=== PATIENT | male | born 1945 | race African-American/Black ===

== ENCOUNTER 2018-12-03 17:21 | Inpatient (IN) | payer BC ==
[2018-12-03 17:27] VITALS: BMI 28.0
--- NOTE | 2018-12-03 17:38 | PDOC ---
History of Present Illness - General History Source: Patient Exam Limitations: No Limitations - History of Present Illness Initial Comments: 12/03/18 17:49 73y M hx of htn, chf sent by ortho for further evaulation of R knee anu. The patient notes the pain began gradually approx 4 days, there was no trauma, falls or injuries. There was also swelling, the pain has graduqally worsened over the past 4 days to the point where he can;t walk. pt went to see dr. boo in his office who tapped his knee and sent the pt to the ED for further evaluation and to see dr. Patel. Pt denies any fevers, no history of gout or diet changes. pt notse he went to a breakfast buffet the day before his knee started bothering him and ate some pork products. <Collins Bryan - Last Filed: 12/03/18 18:14> <Aria Luong - Last Filed: 12/03/18 21:41> - General Chief Complaint: Pain, Acute Stated Complaint: RIGHT KNEE SWELLING/PAIN Time Seen by Provider: 12/03/18 17:49 Past History - Past Medical History Cardiac Disorders: Yes (SLOW HEART RATE) COPD: No HTN: Yes - Suicide/Smoking/Psychosocial Hx Smoking History: Never smoked Hx Alcohol Use: No Drug/Substance Use Hx: No <Collins Bryan - Last Filed: 12/03/18 18:14> <Aria Luong - Last Filed: 12/03/18 21:41> - Past Medical History Allergies/Adverse Reactions: Allergies Allergy/AdvReac Type Severity Reaction Status Date / Time No Known Allergies Allergy Verified 12/03/18 17:22 Review of Systems - Review of Systems Able to Perform ROS?: Yes Comments:: 12/03/18 18:23 Constitutional - no reported Fever, Chills, HEENT: no reported vision changes, sore throat Respiratory: no reported cough, sob, hemoptysis Cardiac: no reported chest pain, palpitations, light headedness, leg swelling Abd/GI: no reported abd pain, nausea, vomiting, blood per rectum, melena, diarrhea : no reported dysuria, frequency, discharge Musculskelatal - +R knee pain and swelling no reported back pain skin - no reported bruising, erythema, rash neurological: no reported headache, numbness, focal weakness, tingling, ataxia, hematologic: no reported easy bruising, easy bleeding <IrvinCollins - Last Filed: 12/03/18 18:14> *Physical Exam - Vital Signs Last Vital Signs Temp Pulse Resp BP Pulse Ox 97.9 F 79 16 136/97 100 12/03/18 17:22 12/03/18 17:22 12/03/18 17:22 12/03/18 17:22 12/03/18 17:22 - Physical Exam Comments: 12/03/18 18:23 GENERAL: The patient is awake, alert, and fully oriented, Nontoxic - in no acute distress. HEAD: Normocephalic, atraumatic.e LUNGS: Breath sounds equal, clear to auscultation bilaterally. No wheezes, no rhonchi, no rales. HEART: Regular rate and rhythm, normal S1 and S2 without murmur, rub or gallop. ABDOMEN: Soft, nontender. No guarding, no rebound. EXTREMITIES: Warmth to the right knee, moderate effusion, range of motion of the right knee limited due to pain. no erythema. no streaking. NEUROLOGICAL: No facial assymetry, Normal speech, PSYCH: Normal mood, normal affect. SKIN: Warm, Dry, normal turgor, <IrvinCollins - Last Filed: 12/03/18 18:14> - Vital Signs Last Vital Signs Temp Pulse Resp BP Pulse Ox 97.9 F 79 16 136/97 100 12/03/18 17:22 12/03/18 17:22 12/03/18 17:22 12/03/18 17:22 12/03/18 17:22 <Aria Luong - Last Filed: 12/03/18 21:41> ED Treatment Course - LABORATORY CBC & Chemistry Diagram: 12/03/18 17:47 12/03/18 17:47 - ADDITIONAL ORDERS Additional order review: Laboratory Results 12/03/18 12/03/18 12/03/18 17:47 17:47 17:47 Sodium 138 Potassium 4.7 Chloride 101 Carbon Dioxide 25 Anion Gap 12 BUN 36 H Creatinine 2.1 H Creat Clearance w eGFR 31.11 Random Glucose 101 Calcium 8.7 Total Bilirubin 0.9 AST 17 ALT 9 L Alkaline Phosphatase 102 Total Protein 7.4 Albumin 3.5 Fluid Source Right knee Fluid WBC 55,335 Fluid RBC 21,248 Fluid Neutrophils 98 Fluid Other Cells 2 syn.lining cells Pleural Diff Comment Synovial Crystals Many msu 12/03/18 17:47 RBC 5.23 MCV 76.7 L MCHC 31.6 L RDW 13.1 MPV 11.0 Neutrophils % No Result Required. Lymphocytes % No Result Required. - Medications Given in the ED: ED Medications Discontinued Medications Generic Name Dose Route Start Last Admin Trade Name Huyen PRN Reason Stop Dose Admin Ibuprofen 400 mg 12/03/18 18:07 12/03/18 18:12 Motrin - PO 12/03/18 18:08 400 mg ONCE ONE Administration <Aria Luong - Last Filed: 12/03/18 21:41> Medical Decision Making - Medical Decision Making 12/03/18 18:24 73-year-old gentleman presenting with atraumatic right knee pain, status post right arthrocentesis as an outpatient by orthopedics - Patient arrives with the specimen in hand Suspect gout versus septic arthritis We'll send synovial fluid samples Blood work Motrin for analgesia Will reassess <Collins Bryan - Last Filed: 12/03/18 18:14> *DC/Admit/Observation/Transfer <Collins Bryan - Last Filed: 12/03/18 18:14> - Discharge Dispostion Decision to Admit order: Yes <Aria Luong - Last Filed: 12/03/18 21:41> Diagnosis at time of Disposition: Septic arthritis of knee, right - Discharge Dispostion Condition at time of disposition: Guarded
[2018-12-03] MEDS ORDERED: IBUPROFEN 400 MG TABLET (FP) PO ONE ×2 (18:07→18:09)
[2018-12-03 18:23] LABS: HEMATOCRIT 40.2 % (35.4-49); HEMOGLOBIN 12.7 GM/dl (11.7-16.9); MCH 24.3 pg (25.7-33.7); MCHC 31.6 g/dl (32.0-35.9); MEAN CELL VOLUME 76.7 fl (80-96); PLATELET COUNT 303 K/MM3 (134-434); RBC 5.23 M/mm3 (4.00-5.60); RDW 13.1 % (11.9-15.9); WHITE BLOOD COUNT 16.8 K/mm3 (4.0-10.8)
[2018-12-03 18:31] LABS: ALBUMIN 3.5 g/dl (3.4-5.0); ALK PHOS 102 U/L (45-117); ANION GAP 12 MMOL/L (8-16); BILIRUBIN,TOTAL 0.9 mg/dl (0.2-1); BLOOD UREA NITROGEN 36 mg/dl (7-18); CALCIUM 8.7 mg/dl (8.5-10); CHLORIDE 101 mmol/L (98-107); CO2 25 mmol/L (21-32); CREATININE 2.1 mg/dl (0.55-1.3); GLUCOSE,RANDOM 101 mg/dl (74-106); POTASSIUM 4.7 mmol/L (3.5-5.1); SGOT/AST 17 U/L (15-37); SGPT/ALT 9 U/L (13-61); SODIUM 138 mmol/L (136-145); TOT PROT 7.4 g/dl (6.4-8.2)
--- NOTE | 2018-12-03 21:32 | PDOC ---
*Physical Exam - Vital Signs Last Vital Signs Temp Pulse Resp BP Pulse Ox 97.9 F 79 16 136/97 100 12/03/18 17:22 12/03/18 17:22 12/03/18 17:22 12/03/18 17:22 12/03/18 17:22 - Physical Exam Comments: 12/03/18 22:[address] Bryan. This is a continuation of care note. ED Treatment Course - LABORATORY CBC & Chemistry Diagram: 12/03/18 17:47 12/03/18 17:47 - ADDITIONAL ORDERS Additional order review: Laboratory Results 12/03/18 12/03/18 12/03/18 17:47 17:47 17:47 Sodium 138 Potassium 4.7 Chloride 101 Carbon Dioxide 25 Anion Gap 12 BUN 36 H Creatinine 2.1 H Creat Clearance w eGFR 31.11 Random Glucose 101 Calcium 8.7 Total Bilirubin 0.9 AST 17 ALT 9 L Alkaline Phosphatase 102 Total Protein 7.4 Albumin 3.5 Fluid Source Right knee Fluid WBC 55,335 Fluid RBC 21,248 Pleural Diff Comment Synovial Crystals Many msu 12/03/18 17:47 RBC 5.23 MCV 76.7 L MCHC 31.6 L RDW 13.1 MPV 11.0 Neutrophils % No Result Required. Lymphocytes % No Result Required. - Medications Given in the ED: ED Medications Discontinued Medications Generic Name Dose Route Start Last Admin Trade Name Freq PRN Reason Stop Dose Admin Ibuprofen 400 mg 12/03/18 18:07 12/03/18 18:12 Motrin - PO 12/03/18 18:08 400 mg ONCE ONE Administration Medical Decision Making - Medical Decision Making 12/03/18 21:32 Pt has a septic arthritis and he will be admitted 12/03/18 21:37 Vanco and Ancef IV will be given initially. *DC/Admit/Observation/Transfer Diagnosis at time of Disposition: Septic arthritis of knee, right - Discharge Dispostion Condition at time of disposition: Guarded - Referrals - Patient Instructions - Post Discharge Activity
[2018-12-03] MEDS ORDERED: VANCOMYCIN 1,000 MG in DEXTROSE 5%-WATER - 250 ML IVPB ONE (21:34)
[2018-12-03] MEDS ORDERED: CEFAZOLIN 1 GM/D5W 1 GM/50 ML BAG IVPB ONE (21:35)
[2018-12-03] MEDS ORDERED: VANCOMYCIN 1,000 MG VIAL (RESTRICTED TO ID ONLY) ONE (21:38)
[2018-12-03] MEDS ORDERED: ceFAZolin SODIUM 1 GM VIAL ONE (21:38)
[2018-12-03] MEDS ORDERED: ACETAMINOPHEN 325 MG TABLET (FP) PO ONE (21:56)
[2018-12-03] MEDS ORDERED: ACETAMINOPHEN 325 MG TABLET (FP) ONE (22:16)
--- NOTE | 2018-12-03 23:24 | HP ---
CHIEF COMPLAINT: right knee swelling with right knee tap today showing >55,000 WBC's and sent to the ER by Orthopedics PCP: None Orthopedist: Dr. Diallo Residential Support Worker: Dr. Chung in [facility] Mechatronics Technologist: Dr. Ding HISTORY OF PRESENT ILLNESS: This is a 73 year old male with history of cardiomyopathy, systolic congestive heart failure, EF 30% and hypertension who developed right knee swelling and pain over the past 4 days. He had a right knee tap today by Orthopedics-Dr. Diallo. He was found to have >55,000 WBC's. He was sent to the ER for an admission for further evaluation and IV antibiotics. In the ER he was found to have WBC of 16.8 in the setting of right knee swelling and pain. Findings with concern for right knee septic arthritis. He was given one dosage of IV vancomycin and Cefazolin. He also has renal insufficiency with a creatinine of 2.1(baseline creatinine is unknown). He reports he sees a Mechatronics Technologist in the outpatient setting. He is currently hemodynamically stable and afebrile. He denied fever. He denied shortness of breath, chest pain, orthopnea, or PND. He is being admitted to Medicine for further medical management. Recent Travel:Denies PAST MEDICAL HISTORY: Cardiomyopathy Systolic congestive heart failure Hypertension PAST SURGICAL HISTORY: Denies Social History: Smoking:Denies Alcohol:Denies Drugs: Denies Family History:noncontributory Allergies No Known Allergies Allergy (Verified 12/03/18 17:22) HOME MEDICATIONS: Home Medications Medication Instructions Recorded Amlodipine Besylate [Norvasc -] 2.5 mg PO DAILY 12/03/18 Aspirin [Aspirin EC] 81 mg PO DAILY 12/03/18 Carvedilol 25 mg PO BID 12/03/18 Furosemide 40 mg PO Q2D 12/03/18 Isosorbide Mononitrate [Isosorbide 30 mg PO DAILY 12/03/18 Mononitrate ER] Sacubitril/Valsartan [Entresto 24 1 each PO DAILY 12/03/18 mg-26 mg Tablet] Spironolact/Hydrochlorothiazid 1 each PO AM 12/03/18 [Spironolactone-Hctz 25-25 Tab] REVIEW OF SYSTEMS CONSTITUTIONAL: Absent: fever, chills, diaphoresis, generalized weakness, malaise, loss of appetite, weight change HEENT: Absent: rhinorrhea, nasal congestion, throat pain, throat swelling, difficulty swallowing, mouth swelling, ear pain, eye pain, visual changes CARDIOVASCULAR: Absent: chest pain, syncope, palpitations, irregular heart rate, lightheadedness , peripheral edema RESPIRATORY: Absent: cough, shortness of breath, dyspnea with exertion, orthopnea, wheezing, stridor, hemoptysis GASTROINTESTINAL: Absent: abdominal pain, abdominal distension, nausea, vomiting, diarrhea, constipation, melena, hematochezia GENITOURINARY: Absent: dysuria, frequency, urgency, hesitancy, hematuria, flank pain, genital pain MUSCULOSKELETAL: Absent: myalgia, arthralgia, joint swelling, back pain, neck pain, right knee pain and swelling SKIN: Absent: rash, itching, pallor HEMATOLOGIC/IMMUNOLOGIC: Absent: easy bleeding, easy bruising, lymphadenopathy, frequent infections ENDOCRINE: Absent: unexplained weight gain, unexplained weight loss, heat intolerance, cold intolerance NEUROLOGIC: Absent: headache, focal weakness or paresthesias, dizziness, unsteady gait, seizure, mental status changes, bladder or bowel incontinence PSYCHIATRIC: Absent: anxiety, depression, suicidal or homicidal ideation, hallucinations. PHYSICAL EXAMINATION Vital Signs - 24 hr 12/03/18 12/03/18 17:22 22:22 Temperature 97.9 F 97.5 F L Pulse Rate 79 Pulse Rate [ 81 Radial] Respiratory 16 18 Rate Blood Pressure 136/97 Blood Pressure 127/83 [Arm] O2 Sat by Pulse 100 99 Oximetry (%) GENERAL: awake, alert, and fully oriented HEAD: normal EYES: pupils equal, round and reactive EARS, NOSE, THROAT: ears normal nares patent NECK: supple no JVD LUNGS: breath sounds equal and clear to auscultation bilaterally no wheezes no crackles no accessory muscle use HEART: regular rate and rhythm normal S1 and S2 ABDOMEN: soft, nontender, not distended, normoactive bowel sounds MUSCULOSKELETAL: limited range of motion to right lower extremity due to right knee swelling and pain UPPER EXTREMITIES: 2+ pulses, warm well-perfused no cyanosis no clubbing no peripheral edema LOWER EXTREMITIES: 2+ pulses, warm, well-perfused no calf tenderness no peripheral edema right knee swelling NEUROLOGICAL: no neuro focal deficits PSYCHIATRIC: cooperative appropriate mood and affect SKIN: warm dry normal turgor no rashes or lesions noted normal capillary refill Laboratory Results - last 24 hr 12/03/18 12/03/18 12/03/18 17:47 17:47 17:47 WBC 16.8 H RBC 5.23 Hgb 12.7 Hct 40.2 MCV 76.7 L MCH 24.3 L MCHC 31.6 L RDW 13.1 Plt Count 303 MPV 11.0 Absolute Neuts (auto) 13.5 Neutrophils % No Result Required. Lymphocytes % No Result Required. Sodium Potassium Chloride Carbon Dioxide Anion Gap BUN Creatinine Creat Clearance w eGFR Random Glucose Calcium Total Bilirubin AST ALT Alkaline Phosphatase Total Protein Albumin Fluid Source Right knee Fluid WBC 55,335 Fluid RBC 21,248 Fluid Neutrophils 98 Fluid Other Cells 2 syn.lining cells Pleural Diff Comment Synovial Crystals Many msu 12/03/18 17:47 WBC RBC Hgb Hct MCV MCH MCHC RDW Plt Count MPV Absolute Neuts (auto) Neutrophils % Lymphocytes % Sodium 138 Potassium 4.7 Chloride 101 Carbon Dioxide 25 Anion Gap 12 BUN 36 H Creatinine 2.1 H Creat Clearance w eGFR 31.11 Random Glucose 101 Calcium 8.7 Total Bilirubin 0.9 AST 17 ALT 9 L Alkaline Phosphatase 102 Total Protein 7.4 Albumin 3.5 Fluid Source Fluid WBC Fluid RBC Fluid Neutrophils Fluid Other Cells Pleural Diff Comment Synovial Crystals ASSESSMENT/PLAN: Mr. Frias is a 73 year old male with history of cardiomyopathy, systolic congestive heart failure, EF 30% (sees a Residential Support Worker in [facility]) and hypertension who developed a right knee pain with swelling and underwent a right knee tap today by Orthopedics-Dr. Diallo. He was found to have >55,000 WBC's. He was sent to the ER for a medical admission and further medical management/evaluation. #1 Right Knee Septic Arthritis Leukocytosis present, currently afebrile.Right knee tap with >55,000 WBC's. Received one dosage of IV vancomycin and cefazolin,continue IV vancomycin and cefazolin. Uric acid level pending. Infectious Diseases-Dr. Zavala consulted. Orthopedics- Dr. Patel consulted. #2 Chronic Systolic Congestive Heart Failure Patient appears euvolemic on exam and asymptomatic. Continue coreg, lasix, aldactone and imdur. Creatinine is 2.1 and will hold entresto in this setting, baseline creatinine is unknown. Cardiology- Dr. Mendez consulted. He is also on amlodipine and would consider stopping in setting of CMP. Check BNP with am labs. #3 Hypertension Controlled. Continue coreg, aldactone, lasix, imdur and amlodipine. #4 Renal Insufficiency(Acute on Chronic) Baseline creatinine unknown. Nephrology consulted-Dr. Lay. Held Entresto and HCTZ in this setting. FEN NPO after midnight in anticipation of orthopedic procedure. DVT Prophylaxsis Lovenox 30 mg daily and SCD's. Visit type - Emergency Visit Emergency Visit: Yes ED Registration Date: 12/03/18 Care time: The patient presented to the Emergency Department on the above date and was hospitalized for further evaluation of their emergent condition. - New Patient This patient is new to me today: Yes Date on this admission: 12/04/18 - Critical Care Critical Care patient: No
[2018-12-03] MEDS ORDERED: COLCHICINE 0.6 MG TABLET (FP) PO ONE (23:30)
--- NOTE | 2018-12-03 23:31 | CONSULT ---
Consult Consult Specialty:: Orthopedics - Alcohol/Substance Use Hx Alcohol Use: No - Smoking History Smoking history: Never smoked Home Medications - Allergies Allergies/Adverse Reactions: Allergies Allergy/AdvReac Type Severity Reaction Status Date / Time No Known Allergies Allergy Verified 12/03/18 17:22 - Home Medications Home Medications: Ambulatory Orders Amlodipine Besylate [Norvasc -] 2.5 mg PO DAILY 12/03/18 Aspirin [Aspirin EC] 81 mg PO DAILY 12/03/18 Carvedilol 25 mg PO BID 12/03/18 Furosemide 40 mg PO Q2D 12/03/18 Isosorbide Mononitrate [Isosorbide Mononitrate ER] 30 mg PO DAILY 12/03/18 Sacubitril/Valsartan [Entresto 24 mg-26 mg Tablet] 1 each PO DAILY 12/03/18 Spironolact/Hydrochlorothiazid [Spironolactone-Hctz 25-25 Tab] 1 each PO AM Physical Exam Vital Signs: Vital Signs Temperature 97.5 F L 12/03/18 22:22 Pulse Rate 81 12/03/18 22:22 Respiratory Rate 18 12/03/18 22:22 Blood Pressure 127/83 12/03/18 22:22 O2 Sat by Pulse Oximetry (%) 99 12/03/18 22:22 Labs: CBC, BMP 12/03/18 17:47 12/03/18 17:47 Assessment/Plan Pt seen and examined. Sent in by Dr. Segura to r/o gout vs septic arthritis. States he has had worsening knee pain and swelling x 4 days without any precedent trauma. Pt has difficulty ambulating due to pain. Hx of CRI. No prior hx of gout. AVSS Selected Entries 12/03/18 22:22 Temperature 97.5 F L Pulse Rate [ 81 Radial] Respiratory 18 Rate Blood Pressure 127/83 [Arm] O2 Sat by Pulse 99 Oximetry (%) Oxygen Delivery Room Air Method Laboratory Tests 12/03/18 12/03/18 12/03/18 17:47 17:47 17:47 WBC 16.8 H Hgb 12.7 Hct 40.2 Plt Count 303 Sodium Potassium Chloride Carbon Dioxide Anion Gap BUN Creatinine Creat Clearance w eGFR Random Glucose Calcium Total Bilirubin AST ALT Alkaline Phosphatase Total Protein Albumin Fluid Source Right knee Fluid WBC 55,335 Fluid RBC 21,248 Fluid Neutrophils 98 Fluid Other Cells 2 syn.lining cells Pleural Diff Comment Synovial Crystals Many msu 12/03/18 17:47 WBC Hgb Hct Plt Count Sodium 138 Potassium 4.7 Chloride 101 Carbon Dioxide 25 Anion Gap 12 BUN 36 H Creatinine 2.1 H Creat Clearance w eGFR 31.11 Random Glucose 101 Calcium 8.7 Total Bilirubin 0.9 AST 17 ALT 9 L Alkaline Phosphatase 102 Total Protein 7.4 Albumin 3.5 Fluid Source Fluid WBC Fluid RBC Fluid Neutrophils Fluid Other Cells Pleural Diff Comment Synovial Crystals Gen: NAD, awake/alert RLE: skin intact, (+) swelling/effusion. Mild warmth. No erythema. Unable to examine due to severe pain. Fluid analysis - 55,000 WBC, (+) uric acid crystals Cx/GS pending A/P right knee effusion Findings discussed with pt and . Likely acute gouty attack based on (+) MSU crystals in synovial fluid. Will start on Colchicine 1.2g followed by 0.6g 1hr later Check creatinine in AM. Cultures and gram stain pending. NPO p MN just in case cultures come back positive. Dr. Segura will evaluate patient tomorrow. If feeling better in AM can d/c home, possibly with allopurinol.
[2018-12-04 00:06] LABS: ANISOCYTOSIS FEW
[2018-12-04 00:08] LABS: PLATELET ESTIMATE ADEQUATE; TARGET CELLS 1+; TEAR DROP CELLS 1+
[2018-12-04] MEDS ORDERED: COLCHICINE 0.6 MG TABLET (FP) PO ONE (00:21)
[2018-12-04 07:00] LABS: BASO % 0.6 % (0-2.0); EOS % 1.5 % (0-4.5); HEMATOCRIT 35.1 % (35.4-49); HEMOGLOBIN 10.8 GM/dl (11.7-16.9); LYMPH % 12.4 % (8-40); MCH 23.7 pg (25.7-33.7); MCHC 30.7 g/dl (32.0-35.9); MEAN CELL VOLUME 77.3 fl (80-96); MEAN PLT VOLUME 10.9 fl (7.5-11.1); MONO % 6.1 % (3.8-10.2); NEUT % 79.4 % (42.8-82.8); PLATELET COUNT 256 K/MM3 (134-434); RBC 4.55 M/mm3 (4.00-5.60); WHITE BLOOD COUNT 10.1 K/mm3 (4.0-10.8)
[2018-12-04] MEDS ORDERED: PATIENT'S OWN MEDICATION (NON-FORMULARY) (Spironolact/Hydrochlorothiazid [Spironolactone-H PO SCH (07:00)
[2018-12-04 07:06] LABS: INR 1.22 (0.82-1.09); PROTHROMBIN TIME (PATIENT) 13.6 SEC (10.2-13.0)
[2018-12-04 07:12] LABS: ANION GAP 10 MMOL/L (8-16); BLOOD UREA NITROGEN 40 mg/dl (7-18); CALCIUM 8.4 mg/dl (8.5-10); CHLORIDE 104 mmol/L (98-107); CO2 24 mmol/L (21-32); CREATININE 1.8 mg/dl (0.55-1.3); GLUCOSE,RANDOM 91 mg/dl (74-106); POTASSIUM 4.1 mmol/L (3.5-5.1); SODIUM 138 mmol/L (136-145); URIC ACID 7.9 mg/dl (2.6-7.2)
[2018-12-04 07:41] LABS: CHOLESTEROL 121 mg/dl (50-200); HDL CHOLESTEROL 28 mg/dl (40-60); LDL CHOLESTEROL (ONLY DFH) 78 mg/dl (5-100); TRIGLYCERIDES 75 mg/dl (0-150)
--- NOTE | 2018-12-04 08:44 | PN ---
Progress Note (short form) - Note Progress Note: ortho Cushner pt comfortable rt knee minor effusion nv intact no skin breakdown ap pt improving labs show urate crystals/gout pt on colchicine Discussed with Dr Patel, he will follow currently npo until cultures most likely only gout, without infection
[2018-12-04 09:16] LABS: N-TERMINAL BNP 2871.8 pg/ml (5-125)
[2018-12-04] MEDS: ISOSORBIDE MONONITRATE 30 MG TAB.SR.24H (FP) PO SCH (09:27)
[2018-12-04] MEDS: ASPIRIN COATED 81 MG TABLET.EC PO SCH (09:27)
[2018-12-04] MEDS: SPIRONOLACTONE 25 MG TABLET (FP) PO SCH (09:27)
[2018-12-04] MEDS: CARVEDILOL 25 MG TABLET (FP) PO SCH ×2 (09:27→21:11)
[2018-12-04] MEDS ORDERED: amLODIPine BESYLATE 2.5 MG TABLET (FP) PO SCH (10:00)
[2018-12-04] MEDS ORDERED: ENOXAPARIN NA (PORCINE) 30 MG/0.3 ML DISP.SYRIN SQ SCH (10:00)
[2018-12-04] MEDS ORDERED: CEFAZOLIN 1 GM/D5W 1 GM/50 ML BAG IVPB SCH (10:00)
[2018-12-04] MEDS ORDERED: HYDROCHLOROTHIAZIDE 25 MG TABLET (FP) PO SCH (10:00)
--- NOTE | 2018-12-04 10:19 | EKG ---
Test Reason : Blood Pressure : / mmHG Vent. Rate : 082 BPM Atrial Rate : 082 BPM P-R Int : 188 ms QRS Dur : 116 ms QT Int : 398 ms P-R-T Axes : 020 -43 118 degrees QTc Int : 464 ms SINUS RHYTHM WITH FREQUENT PREMATURE VENTRICULAR COMPLEXES LEFT AXIS DEVIATION CANNOT RULE OUT ANTERIOR INFARCT , AGE UNDETERMINED T WAVE ABNORMALITY, CONSIDER LATERAL ISCHEMIA ABNORMAL ECG NO PREVIOUS ECGS AVAILABLE Confirmed by CRISELDA PIERRE MD ([id number]) on 12/04/2018 10:19:30 AM Referred By: MD GRANT Confirmed By:CRISELDA PIERRE MD
--- NOTE | 2018-12-04 12:03 | PN ---
Physical Exam: SUBJECTIVE: Patient seen and examined at bedside. Complaining of right knee pain. OBJECTIVE: Vital Signs Period Temp Pulse Resp BP Sys/Clement Pulse Ox Last 24 Hr 97.5 F-98.4 F 74-94 16-20 122-136/76-97 99-100 GENERAL: The patient is awake, alert, and fully oriented, in no acute distress. LUNGS: Breath sounds equal, clear to auscultation bilaterally, no wheezes, no crackles, no accessory muscle use. HEART: Regular rate and rhythm, S1, S2 ABDOMEN: Soft, nontender, nondistended RIGHT KNEE: suprapatellar swelling, slightly warm, decreased flexion secondary to pain NEUROLOGICAL: Cranial nerves II through XII grossly intact. Normal speech, gait not observed. Laboratory Results - last 24 hr 12/03/18 12/03/18 12/03/18 17:47 17:47 17:47 WBC 16.8 H RBC 5.23 Hgb 12.7 Hct 40.2 MCV 76.7 L MCH 24.3 L MCHC 31.6 L RDW 13.1 Plt Count 303 MPV 11.0 Absolute Neuts (auto) 13.5 Neutrophils % No Result Required. Neutrophils % (Manual) 81.0 Band Neutrophils % 3.0 Lymphocytes % No Result Required. Lymphocytes % (Manual) 10.0 Monocytes % Monocytes % (Manual) 6 Eosinophils % Basophils % Platelet Estimate Adequate Anisocytosis Few Target Cells 1+ Tear Drop Cells 1+ PT with INR INR Sodium Potassium Chloride Carbon Dioxide Anion Gap BUN Creatinine Creat Clearance w eGFR Random Glucose Uric Acid Calcium Total Bilirubin AST ALT Alkaline Phosphatase B-Natriuretic Peptide Total Protein Albumin Triglycerides Cholesterol Total LDL Cholesterol HDL Cholesterol TSH Fluid Source Right knee Fluid WBC 55,335 Fluid RBC 21,248 Fluid Neutrophils 98 Fluid Other Cells 2 syn.lining cells Pleural Diff Comment Synovial Crystals Many msu 12/03/18 12/04/18 12/04/18 17:47 06:30 06:30 WBC RBC Hgb Hct MCV MCH MCHC RDW Plt Count MPV Absolute Neuts (auto) Neutrophils % Neutrophils % (Manual) Band Neutrophils % Lymphocytes % Lymphocytes % (Manual) Monocytes % Monocytes % (Manual) Eosinophils % Basophils % Platelet Estimate Anisocytosis Target Cells Tear Drop Cells PT with INR INR Sodium 138 Potassium 4.7 Chloride 101 Carbon Dioxide 25 Anion Gap 12 BUN 36 H Creatinine 2.1 H Creat Clearance w eGFR 31.11 Random Glucose 101 Uric Acid Calcium 8.7 Total Bilirubin 0.9 AST 17 ALT 9 L Alkaline Phosphatase 102 B-Natriuretic Peptide Total Protein 7.4 Albumin 3.5 Triglycerides 75 Cholesterol 121 Total LDL Cholesterol 78 HDL Cholesterol 28 L TSH Cancelled Fluid Source Fluid WBC Fluid RBC Fluid Neutrophils Fluid Other Cells Pleural Diff Comment Synovial Crystals 12/04/18 12/04/18 12/04/18 06:47 06:47 06:47 WBC 10.1 RBC 4.55 Hgb 10.8 L Hct 35.1 L MCV 77.3 L MCH 23.7 L MCHC 30.7 L RDW 13.0 Plt Count 256 MPV 10.9 Absolute Neuts (auto) 7.9 Neutrophils % 79.4 Neutrophils % (Manual) Band Neutrophils % Lymphocytes % 12.4 Lymphocytes % (Manual) Monocytes % 6.1 Monocytes % (Manual) Eosinophils % 1.5 Basophils % 0.6 Platelet Estimate Anisocytosis Target Cells Tear Drop Cells PT with INR 13.6 H INR 1.22 Sodium 138 Potassium 4.1 Chloride 104 Carbon Dioxide 24 Anion Gap 10 BUN 40 H Creatinine 1.8 H Creat Clearance w eGFR 37.17 Random Glucose 91 Uric Acid 7.9 H Calcium 8.4 L Total Bilirubin AST ALT Alkaline Phosphatase B-Natriuretic Peptide 2871.8 H Total Protein Albumin Triglycerides Cholesterol Total LDL Cholesterol HDL Cholesterol TSH 1.70 Fluid Source Fluid WBC Fluid RBC Fluid Neutrophils Fluid Other Cells Pleural Diff Comment Synovial Crystals Active Medications Generic Name Dose Route Start Last Admin Trade Name Freq PRN Reason Stop Dose Admin Aspirin 81 mg 12/04/18 10:00 12/04/18 09:27 Ecotrin - PO 81 mg DAILY LUISA Administration Carvedilol 25 mg 12/04/18 10:00 12/04/18 09:27 Coreg - PO 25 mg BID LUISA Administration Enoxaparin Sodium 40 mg 12/04/18 12:15 Lovenox - SQ DAILY LUISA Furosemide 40 mg 12/05/18 10:00 Lasix - PO Q2D LUISA Cefazolin Sodium 1 gm in 50 mls @ 100 mls/hr 12/04/18 10:00 12/04/18 09:28 Ancef 1 Gm Premixed Ivpb - IVPB 100 mls/hr DAILY LUISA Administration Isosorbide Mononitrate 30 mg 12/04/18 10:00 12/04/18 09:27 Imdur - PO 30 mg DAILY LUISA Administration Spironolactone 25 mg 12/04/18 10:00 12/04/18 09:27 Aldactone - PO 25 mg DAILY LUISA Administration Vancomycin HCl 1,000 mg 12/05/18 22:00 Vancomycin (Pre-Docked) IVPB HS LUISA Protocol Vancomycin HCl 1,000 mg 12/04/18 22:00 Vancomycin (Pre-Docked) IVPB 12/04/18 22:01 ONCE ONE Protocol ASSESSMENT/PLAN 73 year-old male with a PMH significant for HTN, and systolic heart failure. Admitted for right knee swelling, septic joint v. gout. Right knee swelling with leukocytosis s/p aspiration 12/03/18 --presented to his orthopedist with right knee swelling and pain x 4 days, no hx of gout but uric acid 7.9; treated with colchine acute dosing with some improvement; start allopurinol --on admission WBC 16.8k trending down, concern for septic knee, continue empiric Ancef and Vanc; synovial fluid culture pending --seen and evaluated by ortho, no further intervention Severe systolic heart failure --12/04 Echo: mild concentric LVH, EF 30-35%, systolic function severely reduced, severe global hypokinesis; RV normal; LAE; mild MR; mild TR; mild AI --continue lasix q2d, spironolactone, Imdur, restart home Entresto --seen and evaluated by cardiology Hypertension --BP stable --continue carvedilol FEN Fluids: PO intake adequate Electrolytes: replete as indicated Nutrition: low sodium DVT prophylaxis: lovenox Physical therapy Dispo: continues to require inpatient care. Full code. Visit type - Emergency Visit Emergency Visit: Yes ED Registration Date: 12/03/18 Care time: The patient presented to the Emergency Department on the above date and was hospitalized for further evaluation of their emergent condition. - New Patient This patient is new to me today: Yes Date on this admission: 12/07/18 - Critical Care Critical Care patient: No
--- NOTE | 2018-12-04 12:27 | CON.CARD ---
Consult Consult Specialty:: Cardiology - History of Present Illness History of Present Illness: This is a 73 year old male with history of cardiomyopathy, systolic congestive heart failure, EF 30% and hypertension who developed right knee swelling and pain over the past 4 days. He had a right knee tap today by Orthopedics-Dr. Diallo. He was found to have >55,000 WBC's. He was sent to the ER for an admission for further evaluation and IV antibiotics. In the ER he was found to have WBC of 16.8 in the setting of right knee swelling and pain. Findings with concern for right knee septic arthritis. He was given one dosage of IV vancomycin and Cefazolin. He also has renal insufficiency with a creatinine of 2.1(baseline creatinine is unknown). He reports he sees a Baggage Checker in the outpatient setting. He is currently hemodynamically stable and afebrile. He denied fever. He denied shortness of breath, chest pain, orthopnea, or PND. He is being admitted to Medicine for further medical management. - History Source History Provided By: Patient, Medical Record - Past Medical History Cardio/Vascular: Yes: CHF, HTN - Alcohol/Substance Use Hx Alcohol Use: No - Smoking History Smoking history: Never smoked Have you smoked in the past 12 months: No Home Medications - Allergies Allergies/Adverse Reactions: Allergies Allergy/AdvReac Type Severity Reaction Status Date / Time No Known Allergies Allergy Verified 12/03/18 17:22 - Home Medications Home Medications: Ambulatory Orders Amlodipine Besylate [Norvasc -] 2.5 mg PO DAILY 12/03/18 Aspirin [Aspirin EC] 81 mg PO DAILY 12/03/18 Carvedilol 25 mg PO BID 12/03/18 Furosemide 40 mg PO Q2D 12/03/18 Isosorbide Mononitrate [Isosorbide Mononitrate ER] 30 mg PO DAILY 12/03/18 Sacubitril/Valsartan [Entresto 24 mg-26 mg Tablet] 1 each PO DAILY 12/03/18 Spironolact/Hydrochlorothiazid [Spironolactone-Hctz 25-25 Tab] 1 each PO AM Review of Systems - Review of Systems Constitutional: reports: No Symptoms Eyes: reports: No Symptoms HENT: reports: No Symptoms Neck: reports: No Symptoms Cardiovascular: reports: No Symptoms Gastrointestinal: reports: No Symptoms Genitourinary: reports: No Symptoms Breasts: reports: No Symptoms Reported Musculoskeletal: reports: Joint Swelling Integumentary: reports: No Symptoms Neurological: reports: No Symptoms Endocrine: reports: No Symptoms Hematology/Lymphatic: reports: No Symptoms Psychiatric: reports: No Symptoms Vital Signs: Vital Signs Temperature 98.3 F 12/04/18 09:23 Pulse Rate 77 12/04/18 09:23 Respiratory Rate 18 12/04/18 09:23 Blood Pressure 134/78 12/04/18 09:23 O2 Sat by Pulse Oximetry (%) 99 12/03/18 22:22 Constitutional: Yes: Well Nourished, No Distress, Calm Eyes: Yes: WNL, Conjunctiva Clear, EOM Intact HENT: Yes: WNL, Atraumatic, Normocephalic Neck: Yes: WNL, Supple, Trachea Midline Respiratory: Yes: WNL, Regular, CTA Bilaterally Gastrointestinal: Yes: WNL, Normal Bowel Sounds Renal/: Yes: WNL Cardiovascular: Yes: WNL, Regular Rate and Rhythm Musculoskeletal: Yes: WNL Extremities: Yes: WNL Edema: LLE: 1+, RLE: 1+ Integumentary: Yes: WNL Neurological: Yes: WNL, Alert, Oriented ...Motor Strength: WNL Psychiatric: Yes: WNL, Alert, Oriented - Other Data Labs, Other Data: CBC, BMP 12/04/18 06:47 12/04/18 06:47 INR, PTT INR 1.22 (0.82-1.09) 12/04/18 06:47 Troponin, BNP 12/04/18 06:47 B-Natriuretic Peptide 2871.8 H Troponin, BNP 12/04/18 06:47 B-Natriuretic Peptide 2871.8 H Imaging - Results Chest X-ray: Pending EKG: Image Reviewed (sr old ant wal mi rep abn) Problem List - Problems (1) Septic arthritis of knee, right Code(s): M00.9 - PYOGENIC ARTHRITIS, UNSPECIFIED Assessment/Plan knee swelling -r/o septic joint cmp chf ef 30 % as per patient. Workup is not available. Patient states he is followed by dr. Nance of [facility]. No C cath, was told does not need ICD. PAtient does not want any cardiac w/u at present says saw his drCésar 1 month ago . Plan restart outp meds Entresto lasix coreg aldactone echo abx will f/u
[2018-12-04] MEDS: ENOXAPARIN NA (PORCINE) 30 MG/0.3 ML DISP.SYRIN SQ SCH (12:44)
[2018-12-04] MEDS: SACUBITRIL/VALSARTAN 24 MG-26 MG TABLET PO SCH (13:26)
[2018-12-04] MEDS: ALLOPURINOL 300 MG TABLET (FP) PO SCH (15:11)
--- NOTE | 2018-12-04 15:33 | ECHO ---
Name: MARÍA LATHAM Exam:Adult Echocardiogram Study Date: 12/04/2018 01:58 PM Age: 73 yrs Reason For Study: CHF Height: 69 in Weight: 190 lb BSA: 2.0 m2 MMode/2D Measurements & Calculations IVSd: 1.8 cm Ao root diam: 2.9 cm LVIDd: 4.8 cm LA dimension: 3.8 cm LVIDs: 3.3 cm LVPWd: 1.4 cm EDV(Teich): 107.2 ml LVOT diam: 2.0 cm ESV(Teich): 44.8 ml Doppler Measurements & Calculations MV E max chalino: 45.6 cm/sec MV A max chalino: 79.8 cm/sec MV dec slope: 548.1 cm/sec2 MV E/A: 0.57 Ao V2 max: 144.5 cm/sec LV V1 max P.2 mmHg Ao max P.3 mmHg LV V1 max: 89.4 cm/sec BALBIR(V,D): 2.0 cm2 TR max chalino: 226.4 cm/sec PA V2 max: 95.5 cm/sec TR max P.5 mmHg PA max P.6 mmHg Left Ventricle There is mild concentric left ventricular hypertrophy. The left ventricle is mildly dilated. Ejection Fraction = 30-35%. Left ventricular systolic function is severely reduced. There is severe global hypokinesis of the left ventricle. Right Ventricle The right ventricle is normal in size and function. Atria The left atrium is borderline dilated. Mitral Valve The mitral valve is normal in structure and function. There is no mitral valve stenosis. There is mil d mitral regurgitation. Tricuspid Valve The tricuspid valve is normal in structure and function. There is mild tricuspid regurgitation. Aortic Valve The aortic valve opens well. No hemodynamically significant valvular aortic stenosis. Mild aortic regurgitation. Pulmonic Valve The pulmonic valve is not well seen, but is grossly normal. There is no pulmonic valvular stenosis. T here is no pulmonic valvular regurgitation. Great Vessels The aortic root is normal size. Pericardium/Pleura There is no pericardial effusion. Interpretation Summary There is mild concentric left ventricular hypertrophy. The left ventricle is mildly dilated. Ejection Fraction = 30-35%. Left ventricular systolic function is severely reduced. There is severe global hypokinesis of the left ventricle. The right ventricle is normal in size and function. There is mild mitral regurgitation. There is mild tricuspid regurgitation. Mild aortic regurgitation. There is no pericardial effusion. MD Granados *Keon 12/04/2018 03:33 PM
[2018-12-04] MEDS: ACETAMINOPHEN 1000 MG/100 ML VIAL (NON FORMULARY) IVPB PRN (18:47)
--- NOTE | 2018-12-04 19:28 | PN ---
Progress Note (short form) - Note Progress Note: ID CONSULT DICTATED GOUTY ARTHRITIS L KNEE DOUBT SEPTIC ARTHRITIS AZOTEMIA CONTINUE CEFAZOLIN AWAIT SYNOVIAL FLUID C/S IF NEGATIVE AM, D/C ANTIBIOTICS AND CONTINUE TX FOR GOUT
[2018-12-04] MEDS: CEFAZOLIN 1 GM/D5W 1 GM/50 ML BAG IVPB SCH (20:42)
[2018-12-04] MEDS ORDERED: VANCOMYCIN 1 GM in D5W (PRE-DOCKED) 1,000 MG/250 ML IVPB ONE (22:00)
[2018-12-05] MEDS: CEFAZOLIN 1 GM/D5W 1 GM/50 ML BAG IVPB SCH ×3 (01:37→17:43)
--- NOTE | 2018-12-05 06:23 | CONS ---
DATE OF CONSULTATION: DATE OF DICTATION: 12/04/2018 HISTORY: The patient is a 73-year-old male who is evaluated for possible septic arthritis of the right knee. He presented to the emergency room on December 03, 2018 with a 4-day history of worsening pain and swelling of the right knee. He denied any traumatic injury and no associated fever or chills. An arthrocentesis was performed, and he was found to have 55,000 white cells, 25,000 red cells, differential on the white cell count 98% neutrophils. Initial analysis of the synovial fluid showed uric acid crystals. He was empirically treated with vancomycin and cefazolin for possible septic arthritis. The patient complains of right knee pain and swelling. He denies any traumatic injury. No recent febrile illness. He denies prior history of joint swelling or history of gouty arthritis. PAST MEDICAL HISTORY: Positive for congestive heart failure, hypertension, cardiomyopathy. ALLERGIES: No known drug allergies. MEDICATIONS: Aspirin, Norvasc, carvedilol, Lasix, isosorbide, spironolactone. SOCIAL HISTORY: Lives at home with family members. LABORATORY DATA: White count on admission 16,000, presently 10.1, creatinine 1.8, uric acid 7.9. Synovial fluid cultures are pending. PHYSICAL EXAMINATION: General: He is awake and alert. He is in no acute distress. Vital Signs: Temperature 98.7, blood pressure 106/77, pulse 76 and regular, respirations 18 per minute. HEENT: Sclerae anicteric. Heart: Sounds S1, S2. Lungs: Clear. Abdomen: Soft. No tenderness elicited. No mass, rebound, or rigidity. Extremities: Examination of the right knee, there is right knee swelling. The patient is unable to flex the knee secondary to swelling and pain. It is warm to touch. However, there is no overlying erythema, no calf tenderness. No other joint involvement noted. IMPRESSION: 1. Gouty arthritis, right knee. 2. Low likelihood septic arthritis of the right knee. 3. Azotemia. PLAN: Presence of uric acid crystals in synovial fluid consistent with acute flare gouty arthritis. Would continue treatment for gout. Pending synovial fluid cultures, continue cefazolin 1 g IV piggyback every 8 hours. The patient received STAT doses of vancomycin. If synovial fluid culture is negative next 24 hours, would discontinue antibiotics and continue treatment for gouty arthritis. Case discussed with family members present at the time of the examination. Thank you for the kind referral. CRISELDA SAEED M.D. [id number]
[2018-12-05] MEDS ORDERED: PT OWN MED DRAWER 7, Y5N ONE ×2 (09:15→09:46)
--- NOTE | 2018-12-05 09:18 | PN ---
Progress Note, Physician History of Present Illness: This is a 73 year old male with history of cardiomyopathy, systolic congestive heart failure, EF 30% and hypertension who developed right knee swelling and pain over the past 4 days. He had a right knee tap today by Orthopedics-Dr. Diallo. He was found to have >55,000 WBC's. He was sent to the ER for an admission for further evaluation and IV antibiotics. In the ER he was found to have WBC of 16.8 in the setting of right knee swelling and pain. Findings with concern for right knee septic arthritis. He was given one dosage of IV vancomycin and Cefazolin. He also has renal insufficiency with a creatinine of 2.1(baseline creatinine is unknown). He reports he sees a Case Folder in the outpatient setting. He is currently hemodynamically stable and afebrile. He denied fever. He denied shortness of breath, chest pain, orthopnea, or PND. He is being admitted to Medicine for further medical management. - Current Medication List Current Medications: Active Medications Acetaminophen (Ofirmev Injection -) 1,000 mg IVPB Q6H PRN PRN Reason: PAIN LEVEL 6-10 Last Admin: 12/04/18 18:47 Dose: 1,000 mg Allopurinol (Zyloprim -) 300 mg PO DAILY [facility] Last Admin: 12/04/18 15:11 Dose: 300 mg Aspirin (Ecotrin -) 81 mg PO DAILY [facility] Last Admin: 12/04/18 09:27 Dose: 81 mg Carvedilol (Coreg -) 25 mg PO BID [facility] Last Admin: 12/04/18 21:11 Dose: 25 mg Enoxaparin Sodium (Lovenox -) 40 mg SQ DAILY [facility] Last Admin: 12/04/18 12:44 Dose: Not Given Furosemide (Lasix -) 40 mg PO Q2D [facility] Cefazolin Sodium (Ancef 1 Gm Premixed Ivpb -) 1 gm in 50 mls @ 100 mls/hr IVPB Q8H-IV [facility] Last Admin: 12/05/18 01:37 Dose: 100 mls/hr Isosorbide Mononitrate (Imdur -) 30 mg PO DAILY [facility] Last Admin: 12/04/18 09:27 Dose: 30 mg Sacubitril/Valsartan (Entresto 24 Mg-26 Mg Tablet) 1 tab PO DAILY [facility] Last Admin: 12/04/18 13:26 Dose: 1 tab Spironolactone (Aldactone -) 25 mg PO DAILY [facility] Last Admin: 12/04/18 09:27 Dose: 25 mg - Objective Vital Signs: Vital Signs Temperature 98.5 F 12/05/18 04:00 Pulse Rate 67 12/05/18 04:00 Respiratory Rate 16 12/05/18 08:05 Blood Pressure 123/73 12/05/18 04:00 O2 Sat by Pulse Oximetry (%) 98 12/05/18 08:05 Eyes: Yes: WNL, Conjunctiva Clear, EOM Intact HENT: Yes: WNL, Atraumatic, Normocephalic Neck: Yes: WNL, Supple, Trachea Midline Cardiovascular: Yes: WNL, Regular Rate and Rhythm Respiratory: Yes: WNL, Regular, CTA Bilaterally Gastrointestinal: Yes: WNL, Normal Bowel Sounds Genitourinary: Yes: WNL Musculoskeletal: Yes: WNL Extremities: Yes: WNL Edema: No Integumentary: Yes: WNL Neurological: Yes: WNL, Alert, Oriented ...Motor Strength: WNL Psychiatric: Yes: WNL Labs: CBC, BMP 12/04/18 06:47 12/04/18 06:47 INR, PTT INR 1.22 (0.82-1.09) 12/04/18 06:47 Problem List - Problems (1) Septic arthritis of knee, right Code(s): M00.9 - PYOGENIC ARTHRITIS, UNSPECIFIED Assessment/Plan knee swelling -gout artritis r/o septic joint cmp chf ef 30-35 % . . Patient states he is followed by dr. Nance of [facility]. No C cath, was told does not need ICD. PAtient does not want any cardiac w/u at present says saw his drCésar 1 month ago . Plan restart outp meds Entresto lasix coreg aldactone echo abx will f/u
[2018-12-05] MEDS: ISOSORBIDE MONONITRATE 30 MG TAB.SR.24H (FP) PO SCH (09:23)
[2018-12-05] MEDS: ASPIRIN COATED 81 MG TABLET.EC PO SCH (09:23)
[2018-12-05] MEDS: FUROSEMIDE 40 MG TABLET (FP) PO SCH (09:23)
[2018-12-05] MEDS: CARVEDILOL 25 MG TABLET (FP) PO SCH ×2 (09:23→21:25)
[2018-12-05] MEDS: SPIRONOLACTONE 25 MG TABLET (FP) PO SCH (09:23)
[2018-12-05] MEDS: ALLOPURINOL 300 MG TABLET (FP) PO SCH (09:24)
[2018-12-05] MEDS: ENOXAPARIN NA (PORCINE) 30 MG/0.3 ML DISP.SYRIN SQ SCH (09:30)
[2018-12-05] MEDS: SACUBITRIL/VALSARTAN 24 MG-26 MG TABLET PO SCH (09:38)
[2018-12-05 10:36] LABS: BASO % 0.2 % (0-2.0); EOS % 1.9 % (0-4.5); HEMATOCRIT 36.5 % (35.4-49); HEMOGLOBIN 11.3 GM/dl (11.7-16.9); LYMPH % 11.5 % (8-40); MCH 23.7 pg (25.7-33.7); MCHC 30.9 g/dl (32.0-35.9); MEAN CELL VOLUME 76.5 fl (80-96); MEAN PLT VOLUME 10.7 fl (7.5-11.1); MONO % 5.4 % (3.8-10.2); PLATELET COUNT 311 K/MM3 (134-434); RBC 4.77 M/mm3 (4.00-5.60); RDW 13.2 % (11.9-15.9); WHITE BLOOD COUNT 10.1 K/mm3 (4.0-10.8)
[2018-12-05 10:53] LABS: ALBUMIN 2.8 g/dl (3.4-5.0); ALK PHOS 81 U/L (45-117); ANION GAP 7 MMOL/L (8-16); BILIRUBIN,TOTAL 0.5 mg/dl (0.2-1); BLOOD UREA NITROGEN 42 mg/dl (7-18); CALCIUM 8.3 mg/dl (8.5-10); CHLORIDE 105 mmol/L (98-107); CO2 23 mmol/L (21-32); CREATININE 1.6 mg/dl (0.55-1.3); GLUCOSE,RANDOM 132 mg/dl (74-106); POTASSIUM 4.2 mmol/L (3.5-5.1); SGOT/AST 15 U/L (15-37); SGPT/ALT 7 U/L (13-61); SODIUM 135 mmol/L (136-145); TOT PROT 5.9 g/dl (6.4-8.2)
--- NOTE | 2018-12-05 12:02 | PN ---
Physical Exam: SUBJECTIVE: Patient seen and examined, ambulated with PT, pain improving in right knee OBJECTIVE: Vital Signs Period Temp Pulse Resp BP Sys/Clement Pulse Ox Last 24 Hr 97.8 F-98.7 F 67-72 16-19 106-127/66-77 97-99 GENERAL: The patient is awake, alert, and fully oriented, in no acute distress. HEAD: Normal with no signs of trauma. EYES: PERRL, extraocular movements intact, sclera anicteric, conjunctiva clear. No ptosis. ENT: Ears normal, nares patent, oropharynx clear without exudates, moist mucous membranes. NECK: Trachea midline, full range of motion, supple. LUNGS: Breath sounds equal, clear to auscultation bilaterally, no wheezes, no crackles, no accessory muscle use. HEART: Regular rate and rhythm, S1, S2 without murmur, rub or gallop. ABDOMEN: Soft, nontender, nondistended, normoactive bowel sounds, no guarding, no rebound, no hepatosplenomegaly, no masses. EXTREMITIES: 2+ pulses, warm, well-perfused, no edema. NEUROLOGICAL: Cranial nerves II through XII grossly intact. Normal speech, gait not observed. PSYCH: Normal mood, normal affect. SKIN: Warm, dry, normal turgor, no rashes or lesions noted Laboratory Results - last 24 hr 12/05/18 12/05/18 10:00 10:00 WBC 10.1 RBC 4.77 Hgb 11.3 L Hct 36.5 MCV 76.5 L MCH 23.7 L MCHC 30.9 L RDW 13.2 Plt Count 311 D MPV 10.7 Absolute Neuts (auto) 8.2 Neutrophils % 81.0 Lymphocytes % 11.5 Monocytes % 5.4 Eosinophils % 1.9 Basophils % 0.2 Sodium 135 L Potassium 4.2 Chloride 105 Carbon Dioxide 23 Anion Gap 7 L BUN 42 H Creatinine 1.6 H Creat Clearance w eGFR 42.58 Random Glucose 132 H Calcium 8.3 L Total Bilirubin 0.5 AST 15 ALT 7 L Alkaline Phosphatase 81 D Total Protein 5.9 L Albumin 2.8 L Active Medications Generic Name Dose Route Start Last Admin Trade Name Freq PRN Reason Stop Dose Admin Acetaminophen 1,000 mg 12/04/18 18:41 12/04/18 18:47 Ofirmev Injection - IVPB 1,000 mg Q6H PRN Administration PAIN LEVEL 6-10 Allopurinol 300 mg 12/04/18 15:00 12/05/18 09:24 Zyloprim - PO 300 mg DAILY [facility] Administration Aspirin 81 mg 12/04/18 10:00 12/05/18 09:23 Ecotrin - PO 81 mg DAILY [facility] Administration Carvedilol 25 mg 12/04/18 10:00 12/05/18 09:23 Coreg - PO 25 mg BID [facility] Administration Enoxaparin Sodium 40 mg 12/04/18 12:15 12/05/18 09:30 Lovenox - SQ 40 mg DAILY [facility] Administration Furosemide 40 mg 12/05/18 10:00 12/05/18 09:23 Lasix - PO 40 mg Q2D [facility] Administration Cefazolin Sodium 1 gm in 50 mls @ 100 mls/hr 12/04/18 19:45 12/05/18 09:30 Ancef 1 Gm Premixed Ivpb - IVPB 100 mls/hr Q8H-IV [facility] Administration Isosorbide Mononitrate 30 mg 12/04/18 10:00 12/05/18 09:23 Imdur - PO 30 mg DAILY [facility] Administration Sacubitril/Valsartan 1 tab 12/04/18 13:00 12/05/18 09:38 Entresto 24 Mg-26 Mg Tablet PO 1 tab DAILY [facility] Administration Spironolactone 25 mg 12/04/18 10:00 12/05/18 09:23 Aldactone - PO 25 mg DAILY [facility] Administration ASSESSMENT/PLAN: Jesus Frias is a 73 yr old M, 73 year old male with history of cardiomyopathy , systolic congestive heart failure, EF 30% and hypertension who developed right knee swelling admitted for Admitting Diagnosis Right Knee Gouty arthritis Chronic Problems CHF, chronic, systolic HTN A/P: #Gouty Arthritis -Ortho, ID following -synovial fluid- Cx pending -Pain mgt -colchicine, allopurinol -IV abt -PT #HTN #CHF,chronic systolic #hx of cardiomyopathy -on home meds Full Code Dispo: requires inpatient treatment Visit type - Emergency Visit Emergency Visit: Yes ED Registration Date: 12/03/18 Care time: The patient presented to the Emergency Department on the above date and was hospitalized for further evaluation of their emergent condition. - New Patient This patient is new to me today: Yes Date on this admission: 12/05/18 - Critical Care Critical Care patient: No
--- NOTE | 2018-12-05 13:06 | PN ---
Progress Note (short form) - Note Progress Note: Patient seen and examined. Doing much better. Knee pain significantly improved. Was able to walk with PT. Afebrile Selected Entries 12/05/18 10:00 Temperature 98.7 F Pulse Rate 69 Respiratory 18 Rate Blood Pressure 115/68 O2 Sat by Pulse 99 Oximetry (%) Oxygen Delivery Room Air Method Laboratory Tests 12/05/18 12/05/18 10:00 10:00 WBC 10.1 Hgb 11.3 L Hct 36.5 Plt Count 311 D Sodium 135 L Potassium 4.2 Chloride 105 Carbon Dioxide 23 Anion Gap 7 L BUN 42 H Creatinine 1.6 H Random Glucose 132 H Calcium 8.3 L Gen: NAD RLE: swelling down, ROM improved, no erythema, NVID A/P 73yo male with R knee acute gouty arthritis, feeling better Cultures pending but will likely be negative No further orthopedic intervention needed at this time. D/C home as per medicine Please reconsult PRN.
[2018-12-05] MEDS: ACETAMINOPHEN 1000 MG/100 ML VIAL (NON FORMULARY) IVPB PRN (15:46)
[2018-12-05] MEDS ORDERED: VANCOMYCIN 1 GM in D5W (PRE-DOCKED) 1,000 MG/250 ML IVPB SCH (22:00)
[2018-12-06] MEDS: CEFAZOLIN 1 GM/D5W 1 GM/50 ML BAG IVPB SCH ×3 (01:25→17:38)
[2018-12-06 08:36] LABS: BASO % 0.1 % (0-2.0); EOS % 2.7 % (0-4.5); HEMATOCRIT 35.5 % (35.4-49); HEMOGLOBIN 10.8 GM/dl (11.7-16.9); LYMPH % 15.8 % (8-40); MCH 23.4 pg (25.7-33.7); MCHC 30.4 g/dl (32.0-35.9); MEAN PLT VOLUME 11.1 fl (7.5-11.1); MONO % 7.9 % (3.8-10.2); NEUT % 73.5 % (42.8-82.8); PLATELET COUNT 282 K/MM3 (134-434); RBC 4.62 M/mm3 (4.00-5.60); RDW 13.2 % (11.9-15.9); WHITE BLOOD COUNT 7.7 K/mm3 (4.0-10.8)
[2018-12-06 08:37] LABS: ALBUMIN 2.8 g/dl (3.4-5.0); ALK PHOS 77 U/L (45-117); ANION GAP 9 MMOL/L (8-16); BILIRUBIN,TOTAL 0.5 mg/dl (0.2-1); BLOOD UREA NITROGEN 39 mg/dl (7-18); CALCIUM 8.6 mg/dl (8.5-10); CHLORIDE 108 mmol/L (98-107); CO2 24 mmol/L (21-32); CREATININE 1.5 mg/dl (0.55-1.3); GLUCOSE,RANDOM 93 mg/dl (74-106); POTASSIUM 4.7 mmol/L (3.5-5.1); SGOT/AST 14 U/L (15-37); SGPT/ALT 5 U/L (13-61); SODIUM 141 mmol/L (136-145); TOT PROT 5.9 g/dl (6.4-8.2)
--- NOTE | 2018-12-06 08:42 | PN ---
Progress Note, Physician History of Present Illness: This is a 73 year old male with history of cardiomyopathy, systolic congestive heart failure, EF 30% and hypertension who developed right knee swelling and pain over the past 4 days. He had a right knee tap today by Orthopedics-Dr. Diallo. He was found to have >55,000 WBC's. He was sent to the ER for an admission for further evaluation and IV antibiotics. In the ER he was found to have WBC of 16.8 in the setting of right knee swelling and pain. Findings with concern for right knee septic arthritis. He was given one dosage of IV vancomycin and Cefazolin. He also has renal insufficiency with a creatinine of 2.1(baseline creatinine is unknown). He reports he sees a Mgmt Consultant in the outpatient setting. He is currently hemodynamically stable and afebrile. He denied fever. He denied shortness of breath, chest pain, orthopnea, or PND. He is being admitted to Medicine for further medical management. - Current Medication List Current Medications: Active Medications Acetaminophen (Ofirmev Injection -) 1,000 mg IVPB Q6H PRN PRN Reason: PAIN LEVEL 6-10 Last Admin: 12/05/18 15:46 Dose: 1,000 mg Allopurinol (Zyloprim -) 300 mg PO DAILY [facility] Last Admin: 12/05/18 09:24 Dose: 300 mg Aspirin (Ecotrin -) 81 mg PO DAILY [facility] Last Admin: 12/05/18 09:23 Dose: 81 mg Carvedilol (Coreg -) 25 mg PO BID [facility] Last Admin: 12/05/18 21:25 Dose: 25 mg Enoxaparin Sodium (Lovenox -) 40 mg SQ DAILY [facility] Last Admin: 12/05/18 09:30 Dose: 40 mg Furosemide (Lasix -) 40 mg PO Q2D [facility] Last Admin: 12/05/18 09:23 Dose: 40 mg Cefazolin Sodium (Ancef 1 Gm Premixed Ivpb -) 1 gm in 50 mls @ 100 mls/hr IVPB Q8H-IV [facility] Last Admin: 12/06/18 01:25 Dose: 100 mls/hr Isosorbide Mononitrate (Imdur -) 30 mg PO DAILY [facility] Last Admin: 12/05/18 09:23 Dose: 30 mg Sacubitril/Valsartan (Entresto 24 Mg-26 Mg Tablet) 1 tab PO DAILY [facility] Last Admin: 12/05/18 09:38 Dose: 1 tab Spironolactone (Aldactone -) 25 mg PO DAILY [facility] Last Admin: 12/05/18 09:23 Dose: 25 mg - Objective Vital Signs: Vital Signs Temperature 98.5 F 12/06/18 06:00 Pulse Rate 66 12/06/18 06:00 Respiratory Rate 18 12/06/18 06:00 Blood Pressure 125/74 12/06/18 06:00 O2 Sat by Pulse Oximetry (%) 99 12/06/18 06:00 Eyes: Yes: WNL, Conjunctiva Clear, EOM Intact HENT: Yes: WNL, Atraumatic, Normocephalic Neck: Yes: WNL, Supple, Trachea Midline Cardiovascular: Yes: WNL, Regular Rate and Rhythm Respiratory: Yes: WNL, Regular, CTA Bilaterally Gastrointestinal: Yes: WNL, Normal Bowel Sounds Genitourinary: Yes: WNL Musculoskeletal: Yes: WNL Extremities: Yes: WNL Edema: No Integumentary: Yes: WNL Neurological: Yes: WNL, Alert, Oriented ...Motor Strength: WNL Psychiatric: Yes: WNL Labs: INR, PTT INR 1.22 (0.82-1.09) 12/04/18 06:47 Problem List - Problems (1) Septic arthritis of knee, right Code(s): M00.9 - PYOGENIC ARTHRITIS, UNSPECIFIED Assessment/Plan knee swelling -gout artritis r/o septic joint cmp chf ef 30-35 % . . Patient states he is followed by dr. Nance of [facility]. No C cath, was told does not need ICD. PAtient does not want any cardiac w/u at present says saw his 1 month ago . Plan restart outp meds Entresto lasix coreg aldactone echo abx will f/u
[2018-12-06] MEDS ORDERED: PT OWN MED DRAWER 7, Y5N ONE (09:20)
[2018-12-06] MEDS: SACUBITRIL/VALSARTAN 24 MG-26 MG TABLET PO SCH (09:36)
[2018-12-06] MEDS: ASPIRIN COATED 81 MG TABLET.EC PO SCH (09:36)
[2018-12-06] MEDS: ISOSORBIDE MONONITRATE 30 MG TAB.SR.24H (FP) PO SCH (09:36)
[2018-12-06] MEDS: SPIRONOLACTONE 25 MG TABLET (FP) PO SCH (09:37)
[2018-12-06] MEDS: CARVEDILOL 25 MG TABLET (FP) PO SCH ×2 (09:37→22:02)
[2018-12-06] MEDS: ALLOPURINOL 300 MG TABLET (FP) PO SCH (09:37)
[2018-12-06] MEDS: ENOXAPARIN NA (PORCINE) 30 MG/0.3 ML DISP.SYRIN SQ SCH (09:39)
--- NOTE | 2018-12-06 10:38 | PN ---
Physical Exam: SUBJECTIVE: Patient seen and examined, pt walking on unit with walker, call made out to [facility], re:synovial cx, as per dental laboratory worker, specimen was never received from heme lab, tech has specimen now and will do gram stain, OBJECTIVE: Vital Signs Period Temp Pulse Resp BP Sys/Clement Pulse Ox Last 24 Hr 98.4 F-98.7 F 66-74 18-18 101-132/68-74 97-99 GENERAL: The patient is awake, alert, and fully oriented, in no acute distress. HEAD: Normal with no signs of trauma. EYES: PERRL, extraocular movements intact, sclera anicteric, conjunctiva clear. No ptosis. ENT: Ears normal, nares patent, oropharynx clear without exudates, moist mucous membranes. NECK: Trachea midline, full range of motion, supple. LUNGS: Breath sounds equal, clear to auscultation bilaterally, no wheezes, no crackles, no accessory muscle use. HEART: Regular rate and rhythm, S1, S2 without murmur, rub or gallop. ABDOMEN: Soft, nontender, nondistended, normoactive bowel sounds, no guarding, no rebound, no hepatosplenomegaly, no masses. EXTREMITIES: 2+ pulses, warm, well-perfused, no edema. NEUROLOGICAL: Cranial nerves II through XII grossly intact. Normal speech, gait not observed. PSYCH: Normal mood, normal affect. SKIN: Warm, dry, normal turgor, no rashes or lesions noted Laboratory Results - last 24 hr 12/05/18 12/05/18 12/06/18 10:00 10:00 06:00 WBC 10.1 7.7 RBC 4.77 4.62 Hgb 11.3 L 10.8 L Hct 36.5 35.5 MCV 76.5 L 77.0 L MCH 23.7 L 23.4 L MCHC 30.9 L 30.4 L RDW 13.2 13.2 Plt Count 311 D 282 MPV 10.7 11.1 Absolute Neuts (auto) 8.2 5.7 Neutrophils % 81.0 73.5 Lymphocytes % 11.5 15.8 D Monocytes % 5.4 7.9 Eosinophils % 1.9 2.7 Basophils % 0.2 0.1 Sodium 135 L Potassium 4.2 Chloride 105 Carbon Dioxide 23 Anion Gap 7 L BUN 42 H Creatinine 1.6 H Creat Clearance w eGFR 42.58 Random Glucose 132 H Calcium 8.3 L Magnesium Total Bilirubin 0.5 AST 15 ALT 7 L Alkaline Phosphatase 81 D Total Protein 5.9 L Albumin 2.8 L 12/06/18 06:00 WBC RBC Hgb Hct MCV MCH MCHC RDW Plt Count MPV Absolute Neuts (auto) Neutrophils % Lymphocytes % Monocytes % Eosinophils % Basophils % Sodium 141 Potassium 4.7 Chloride 108 H Carbon Dioxide 24 Anion Gap 9 BUN 39 H Creatinine 1.5 H Creat Clearance w eGFR 45.87 Random Glucose 93 Calcium 8.6 Magnesium 2.0 Total Bilirubin 0.5 AST 14 L ALT 5 L Alkaline Phosphatase 77 Total Protein 5.9 L Albumin 2.8 L Active Medications Generic Name Dose Route Start Last Admin Trade Name Freq PRN Reason Stop Dose Admin Acetaminophen 1,000 mg 12/04/18 18:41 12/05/18 15:46 Ofirmev Injection - IVPB 1,000 mg Q6H PRN Administration PAIN LEVEL 6-10 Allopurinol 300 mg 12/04/18 15:00 12/06/18 09:37 Zyloprim - PO 300 mg DAILY LUISA Administration Aspirin 81 mg 12/04/18 10:00 12/06/18 09:36 Ecotrin - PO 81 mg DAILY LUISA Administration Carvedilol 25 mg 12/04/18 10:00 12/06/18 09:37 Coreg - PO 25 mg BID LUISA Administration Enoxaparin Sodium 40 mg 12/04/18 12:15 12/06/18 09:39 Lovenox - SQ 40 mg DAILY LUISA Administration Furosemide 40 mg 12/05/18 10:00 12/05/18 09:23 Lasix - PO 40 mg Q2D LUISA Administration Cefazolin Sodium 1 gm in 50 mls @ 100 mls/hr 12/04/18 19:45 12/06/18 09:32 Ancef 1 Gm Premixed Ivpb - IVPB 100 mls/hr Q8H-IV LUISA Administration Isosorbide Mononitrate 30 mg 12/04/18 10:00 12/06/18 09:36 Imdur - PO 30 mg DAILY LUISA Administration Sacubitril/Valsartan 1 tab 12/04/18 13:00 12/06/18 09:36 Entresto 24 Mg-26 Mg Tablet PO 1 tab DAILY LUISA Administration Spironolactone 25 mg 12/04/18 10:00 12/06/18 09:37 Aldactone - PO 25 mg DAILY LUISA Administration ASSESSMENT/PLAN: Jesus Frias is a 73 yr old M, 73 year old male with history of cardiomyopathy , systolic congestive heart failure, EF 30% and hypertension who developed right knee swelling admitted for Admitting Diagnosis Right Knee Gouty arthritis Chronic Problems CHF, chronic, systolic HTN A/P: #Gouty Arthritis-improving -Ortho note appreciated- no other intervention, can be dc if med stable -synovial fluid- Cx pending -Pain mgt -colchicine, allopurinol -IV abt -PT #HTN #CHF,chronic systolic #hx of cardiomyopathy -on home meds Full Code Dispo: requires inpatient treatment Visit type - Emergency Visit Emergency Visit: Yes ED Registration Date: 12/03/18 Care time: The patient presented to the Emergency Department on the above date and was hospitalized for further evaluation of their emergent condition. - New Patient This patient is new to me today: No - Critical Care Critical Care patient: No
[2018-12-07] MEDS: CEFAZOLIN 1 GM/D5W 1 GM/50 ML BAG IVPB SCH ×3 (01:02→18:21)
--- NOTE | 2018-12-07 07:12 | PN ---
Physical Exam: SUBJECTIVE: Patient seen and examined sitting on edge of bed. Pain in right knee is better, now describes it as an "ache." OBJECTIVE: Vital Signs Period Temp Pulse Resp BP Sys/Clement Pulse Ox Last 24 Hr 98.2 F-98.8 F 68-73 18-18 114-134/70-78 98-100 GENERAL: The patient is awake, alert, and fully oriented, in no acute distress. LUNGS: Breath sounds equal, clear to auscultation bilaterally, no wheezes, no crackles, no accessory muscle use. HEART: Regular rate and rhythm, S1, S2 ABDOMEN: Soft, nontender, nondistended RIGHT KNEE: suprapatellar swelling, slightly warm, decreased flexion secondary to pain NEUROLOGICAL: Cranial nerves II through XII grossly intact. Normal speech, gait not observed. Laboratory Results - last 24 hr 12/06/18 12/06/18 06:00 06:00 WBC 7.7 RBC 4.62 Hgb 10.8 L Hct 35.5 MCV 77.0 L MCH 23.4 L MCHC 30.4 L RDW 13.2 Plt Count 282 MPV 11.1 Absolute Neuts (auto) 5.7 Neutrophils % 73.5 Lymphocytes % 15.8 D Monocytes % 7.9 Eosinophils % 2.7 Basophils % 0.1 Sodium 141 Potassium 4.7 Chloride 108 H Carbon Dioxide 24 Anion Gap 9 BUN 39 H Creatinine 1.5 H Creat Clearance w eGFR 45.87 Random Glucose 93 Calcium 8.6 Magnesium 2.0 Total Bilirubin 0.5 AST 14 L ALT 5 L Alkaline Phosphatase 77 Total Protein 5.9 L Albumin 2.8 L Active Medications Generic Name Dose Route Start Last Admin Trade Name Huyen PRN Reason Stop Dose Admin Acetaminophen 1,000 mg 12/04/18 18:41 12/05/18 15:46 Ofirmev Injection - IVPB 1,000 mg Q6H PRN Administration PAIN LEVEL 6-10 Allopurinol 300 mg 12/04/18 15:00 12/06/18 09:37 Zyloprim - PO 300 mg DAILY LUISA Administration Aspirin 81 mg 12/04/18 10:00 12/06/18 09:36 Ecotrin - PO 81 mg DAILY LUISA Administration Carvedilol 25 mg 12/04/18 10:00 12/06/18 22:02 Coreg - PO 25 mg BID LUISA Administration Enoxaparin Sodium 40 mg 12/04/18 12:15 12/06/18 09:39 Lovenox - SQ 40 mg DAILY LUISA Administration Furosemide 40 mg 12/05/18 10:00 12/05/18 09:23 Lasix - PO 40 mg Q2D LUISA Administration Cefazolin Sodium 1 gm in 50 mls @ 100 mls/hr 12/04/18 19:45 12/07/18 01:02 Ancef 1 Gm Premixed Ivpb - IVPB 100 mls/hr Q8H-IV LUISA Administration Isosorbide Mononitrate 30 mg 12/04/18 10:00 12/06/18 09:36 Imdur - PO 30 mg DAILY LUISA Administration Sacubitril/Valsartan 1 tab 12/04/18 13:00 12/06/18 09:36 Entresto 24 Mg-26 Mg Tablet PO 1 tab DAILY LUISA Administration Spironolactone 25 mg 12/04/18 10:00 12/06/18 09:37 Aldactone - PO 25 mg DAILY LUISA Administration ASSESSMENT/PLAN: 73 year-old male with a PMH significant for HTN, and systolic heart failure. Admitted for right knee swelling, septic joint v. gout. Right knee swelling with leukocytosis s/p aspiration 12/03/18 --presented to his orthopedist with right knee swelling and pain x 4 days, no hx of gout but uric acid 7.9; synovial fluid 55K WBCs, + crystals --treated with colchine acute dosing with improvement; start prednisone PO 40mg --on admission serum WBC 16.8k now wnl; aspirate culture preliminarily no growth; continue empiric Ancef and Vanc; ID following --seen and evaluated by ortho, no further intervention Severe systolic heart failure --12/04 Echo: mild concentric LVH, EF 30-35%, systolic function severely reduced, severe global hypokinesis; RV normal; LAE; mild MR; mild TR; mild AI --continue lasix q2d, spironolactone, Imdur, Entresto --seen and evaluated by cardiology Elevated Creatinine, resolved --Cr 2.1 on admission, today 1.3 Hypertension --BP stable --continue carvedilol FEN Fluids: PO intake adequate Electrolytes: replete as indicated Nutrition: low sodium DVT prophylaxis: lovenox Physical therapy Dispo: continues to require inpatient care. Waiting for final culture results. Full code. Visit type - Emergency Visit Emergency Visit: Yes ED Registration Date: 12/03/18 Care time: The patient presented to the Emergency Department on the above date and was hospitalized for further evaluation of their emergent condition. - New Patient This patient is new to me today: No - Critical Care Critical Care patient: No
[2018-12-07 07:28] LABS: BASO % 0.5 % (0-2.0); EOS % 3.4 % (0-4.5); HEMATOCRIT 36.1 % (35.4-49); HEMOGLOBIN 11.2 GM/dl (11.7-16.9); LYMPH % 17.3 % (8-40); MCH 23.6 pg (25.7-33.7); MCHC 31.1 g/dl (32.0-35.9); MEAN CELL VOLUME 75.9 fl (80-96); MEAN PLT VOLUME 10.6 fl (7.5-11.1); MONO % 6.3 % (3.8-10.2); NEUT % 72.5 % (42.8-82.8); PLATELET COUNT 336 K/MM3 (134-434); RBC 4.75 M/mm3 (4.00-5.60); RDW 13.1 % (11.9-15.9); WHITE BLOOD COUNT 8.4 K/mm3 (4.0-10.8)
[2018-12-07 07:46] LABS: ALK PHOS 79 U/L (45-117); ANION GAP 5 MMOL/L (8-16); BILIRUBIN,TOTAL 0.4 mg/dl (0.2-1); BLOOD UREA NITROGEN 34 mg/dl (7-18); CALCIUM 8.7 mg/dl (8.5-10); CHLORIDE 110 mmol/L (98-107); CO2 23 mmol/L (21-32); CREATININE 1.3 mg/dl (0.55-1.3); GLUCOSE,RANDOM 111 mg/dl (74-106); POTASSIUM 4.5 mmol/L (3.5-5.1); SGOT/AST 15 U/L (15-37); SGPT/ALT 4 U/L (13-61); SODIUM 138 mmol/L (136-145)
[2018-12-07] MEDS ORDERED: PT OWN MED DRAWER 7, Y5N ONE (09:24)
[2018-12-07] MEDS: CARVEDILOL 25 MG TABLET (FP) PO SCH ×2 (09:38→21:46)
[2018-12-07] MEDS: ASPIRIN COATED 81 MG TABLET.EC PO SCH (09:38)
[2018-12-07] MEDS: FUROSEMIDE 40 MG TABLET (FP) PO SCH (09:38)
[2018-12-07] MEDS: ISOSORBIDE MONONITRATE 30 MG TAB.SR.24H (FP) PO SCH (09:38)
[2018-12-07] MEDS: ALLOPURINOL 300 MG TABLET (FP) PO SCH (09:38)
[2018-12-07] MEDS: SPIRONOLACTONE 25 MG TABLET (FP) PO SCH (09:38)
[2018-12-07] MEDS: SACUBITRIL/VALSARTAN 24 MG-26 MG TABLET PO SCH (09:38)
[2018-12-07] MEDS: ENOXAPARIN NA (PORCINE) 30 MG/0.3 ML DISP.SYRIN SQ SCH (09:41)
--- NOTE | 2018-12-07 09:59 | PN ---
Progress Note, Physician History of Present Illness: This is a 73 year old male with history of cardiomyopathy, systolic congestive heart failure, EF 30% and hypertension who developed right knee swelling and pain over the past 4 days. He had a right knee tap today by Orthopedics-Dr. Diallo. He was found to have >55,000 WBC's. He was sent to the ER for an admission for further evaluation and IV antibiotics. In the ER he was found to have WBC of 16.8 in the setting of right knee swelling and pain. Findings with concern for right knee septic arthritis. He was given one dosage of IV vancomycin and Cefazolin. He also has renal insufficiency with a creatinine of 2.1(baseline creatinine is unknown). He reports he sees a Salon Supervisor in the outpatient setting. He is currently hemodynamically stable and afebrile. He denied fever. He denied shortness of breath, chest pain, orthopnea, or PND. He is being admitted to Medicine for further medical management. - Current Medication List Current Medications: Active Medications Acetaminophen (Ofirmev Injection -) 1,000 mg IVPB Q6H PRN PRN Reason: PAIN LEVEL 6-10 Last Admin: 12/05/18 15:46 Dose: 1,000 mg Allopurinol (Zyloprim -) 300 mg PO DAILY [facility] Last Admin: 12/07/18 09:38 Dose: 300 mg Aspirin (Ecotrin -) 81 mg PO DAILY [facility] Last Admin: 12/07/18 09:38 Dose: 81 mg Carvedilol (Coreg -) 25 mg PO BID [facility] Last Admin: 12/07/18 09:38 Dose: 25 mg Enoxaparin Sodium (Lovenox -) 40 mg SQ DAILY [facility] Last Admin: 12/07/18 09:41 Dose: 40 mg Furosemide (Lasix -) 40 mg PO Q2D [facility] Last Admin: 12/07/18 09:38 Dose: 40 mg Cefazolin Sodium (Ancef 1 Gm Premixed Ivpb -) 1 gm in 50 mls @ 100 mls/hr IVPB Q8H-IV [facility] Last Admin: 12/07/18 09:38 Dose: 100 mls/hr Isosorbide Mononitrate (Imdur -) 30 mg PO DAILY [facility] Last Admin: 12/07/18 09:38 Dose: 30 mg Sacubitril/Valsartan (Entresto 24 Mg-26 Mg Tablet) 1 tab PO DAILY [facility] Last Admin: 12/07/18 09:38 Dose: 1 tab Spironolactone (Aldactone -) 25 mg PO DAILY [facility] Last Admin: 12/07/18 09:38 Dose: 25 mg - Objective Vital Signs: Vital Signs Temperature 98.2 F 12/07/18 09:36 Pulse Rate 69 12/07/18 09:36 Respiratory Rate 18 12/07/18 09:36 Blood Pressure 115/69 12/07/18 09:36 O2 Sat by Pulse Oximetry (%) 99 12/07/18 09:00 Eyes: Yes: WNL, Conjunctiva Clear, EOM Intact HENT: Yes: WNL, Atraumatic, Normocephalic Neck: Yes: WNL, Supple, Trachea Midline Cardiovascular: Yes: WNL, Regular Rate and Rhythm Respiratory: Yes: WNL, Regular, CTA Bilaterally Gastrointestinal: Yes: WNL, Normal Bowel Sounds Genitourinary: Yes: WNL Musculoskeletal: Yes: WNL Extremities: Yes: WNL Edema: No Integumentary: Yes: WNL Neurological: Yes: WNL, Alert, Oriented ...Motor Strength: WNL Psychiatric: Yes: WNL Labs: CBC, BMP 12/07/18 07:00 12/07/18 07:00 INR, PTT INR 1.22 (0.82-1.09) 12/04/18 06:47 Problem List - Problems (1) Septic arthritis of knee, right Code(s): M00.9 - PYOGENIC ARTHRITIS, UNSPECIFIED Assessment/Plan knee swelling -gout artritis r/o septic joint cmp chf ef 30-35 % . . Patient states he is followed by dr. Nance of [facility]. No C cath, was told does not need ICD. PAtient does not want any cardiac w/u at present says saw his drCésar 1 month ago . Plan restart outp meds Entresto lasix coreg aldactone echo abx will f/u
[2018-12-07] MEDS: predniSONE 20 MG TABLET (UD) PO SCH (14:59)
[2018-12-07 22:10] VITALS: PULSE 73
[2018-12-08] MEDS: CEFAZOLIN 1 GM/D5W 1 GM/50 ML BAG IVPB SCH ×2 (02:00→10:06)
[2018-12-08 04:09] VITALS: BP 124/70; TEMP 98
[2018-12-08] MEDS ORDERED: PT OWN MED DRAWER 7, Y5N ONE (10:02)
[2018-12-08] MEDS: SACUBITRIL/VALSARTAN 24 MG-26 MG TABLET PO SCH (10:05)
[2018-12-08] MEDS: SPIRONOLACTONE 25 MG TABLET (FP) PO SCH (10:05)
[2018-12-08] MEDS: ISOSORBIDE MONONITRATE 30 MG TAB.SR.24H (FP) PO SCH (10:05)
[2018-12-08] MEDS: CARVEDILOL 25 MG TABLET (FP) PO SCH (10:05)
[2018-12-08] MEDS: predniSONE 20 MG TABLET (UD) PO SCH (10:05)
[2018-12-08] MEDS: ASPIRIN COATED 81 MG TABLET.EC PO SCH (10:05)
[2018-12-08] MEDS: ENOXAPARIN NA (PORCINE) 30 MG/0.3 ML DISP.SYRIN SQ SCH (10:13)
[2018-12-08] MEDS ORDERED: ENOXAPARIN NA (PORCINE) 40 MG/0.4 ML DISP.SYRIN SQ SCH (10:15)
--- NOTE | 2018-12-08 11:20 | DS ---
Physical Exam: SUBJECTIVE: Patient seen and examined. Knee pain is much improved. Observed ambulating independently without cane or walker. Walked 260 feet with PT. OBJECTIVE: Vital Signs Period Temp Pulse Resp BP Sys/Clement Pulse Ox Last 24 Hr 98.0 F-98.7 F 66-78 16-18 122-148/70-88 97-98 PHYSICAL EXAM GENERAL: The patient is awake, alert, and fully oriented, in no acute distress. LUNGS: Breath sounds equal, clear to auscultation bilaterally, no wheezes, no crackles, no accessory muscle use. HEART: Regular rate and rhythm, S1, S2 ABDOMEN: Soft, nontender, nondistended RIGHT KNEE: suprapatellar swelling, slightly warm, decreased flexion secondary to pain NEUROLOGICAL: Cranial nerves II through XII grossly intact. Normal speech, gait not observed. Laboratory Tests 12/03/18 12/03/18 12/03/18 17:47 17:47 17:47 WBC 16.8 H RBC 5.23 Hgb 12.7 Hct 40.2 MCV 76.7 L MCH 24.3 L MCHC 31.6 L RDW 13.1 Plt Count 303 MPV 11.0 Absolute Neuts (auto) 13.5 Neutrophils % No Result Required. Neutrophils % (Manual) 81.0 Band Neutrophils % 3.0 Lymphocytes % No Result Required. Lymphocytes % (Manual) 10.0 Monocytes % Monocytes % (Manual) 6 Eosinophils % Basophils % Platelet Estimate Adequate Anisocytosis Few Target Cells 1+ Tear Drop Cells 1+ PT with INR INR Sodium Potassium Chloride Carbon Dioxide Anion Gap BUN Creatinine Creat Clearance w eGFR Random Glucose Uric Acid Calcium Magnesium Total Bilirubin AST ALT Alkaline Phosphatase B-Natriuretic Peptide Total Protein Albumin Triglycerides Cholesterol Total LDL Cholesterol HDL Cholesterol TSH Fluid Source Right knee Fluid WBC 55,335 Fluid RBC 21,248 Fluid Neutrophils 98 Fluid Other Cells 2 syn.lining cells Pleural Diff Comment Synovial Crystals Many msu 12/03/18 12/04/18 12/04/18 17:47 06:30 06:30 WBC RBC Hgb Hct MCV MCH MCHC RDW Plt Count MPV Absolute Neuts (auto) Neutrophils % Neutrophils % (Manual) Band Neutrophils % Lymphocytes % Lymphocytes % (Manual) Monocytes % Monocytes % (Manual) Eosinophils % Basophils % Platelet Estimate Anisocytosis Target Cells Tear Drop Cells PT with INR INR Sodium 138 Potassium 4.7 Chloride 101 Carbon Dioxide 25 Anion Gap 12 BUN 36 H Creatinine 2.1 H Creat Clearance w eGFR 31.11 Random Glucose 101 Uric Acid Calcium 8.7 Magnesium Total Bilirubin 0.9 AST 17 ALT 9 L Alkaline Phosphatase 102 B-Natriuretic Peptide Total Protein 7.4 Albumin 3.5 Triglycerides 75 Cholesterol 121 Total LDL Cholesterol 78 HDL Cholesterol 28 L TSH Cancelled Fluid Source Fluid WBC Fluid RBC Fluid Neutrophils Fluid Other Cells Pleural Diff Comment Synovial Crystals 12/04/18 12/04/18 12/04/18 06:47 06:47 06:47 WBC 10.1 RBC 4.55 Hgb 10.8 L Hct 35.1 L MCV 77.3 L MCH 23.7 L MCHC 30.7 L RDW 13.0 Plt Count 256 MPV 10.9 Absolute Neuts (auto) 7.9 Neutrophils % 79.4 Neutrophils % (Manual) Band Neutrophils % Lymphocytes % 12.4 Lymphocytes % (Manual) Monocytes % 6.1 Monocytes % (Manual) Eosinophils % 1.5 Basophils % 0.6 Platelet Estimate Anisocytosis Target Cells Tear Drop Cells PT with INR 13.6 H INR 1.22 Sodium 138 Potassium 4.1 Chloride 104 Carbon Dioxide 24 Anion Gap 10 BUN 40 H Creatinine 1.8 H Creat Clearance w eGFR 37.17 Random Glucose 91 Uric Acid 7.9 H Calcium 8.4 L Magnesium Total Bilirubin AST ALT Alkaline Phosphatase B-Natriuretic Peptide 2871.8 H Total Protein Albumin Triglycerides Cholesterol Total LDL Cholesterol HDL Cholesterol TSH 1.70 Fluid Source Fluid WBC Fluid RBC Fluid Neutrophils Fluid Other Cells Pleural Diff Comment Synovial Crystals 12/05/18 12/05/18 12/06/18 10:00 10:00 06:00 WBC 10.1 7.7 RBC 4.77 4.62 Hgb 11.3 L 10.8 L Hct 36.5 35.5 MCV 76.5 L 77.0 L MCH 23.7 L 23.4 L MCHC 30.9 L 30.4 L RDW 13.2 13.2 Plt Count 311 D 282 MPV 10.7 11.1 Absolute Neuts (auto) 8.2 5.7 Neutrophils % 81.0 73.5 Neutrophils % (Manual) Band Neutrophils % Lymphocytes % 11.5 15.8 D Lymphocytes % (Manual) Monocytes % 5.4 7.9 Monocytes % (Manual) Eosinophils % 1.9 2.7 Basophils % 0.2 0.1 Platelet Estimate Anisocytosis Target Cells Tear Drop Cells PT with INR INR Sodium 135 L Potassium 4.2 Chloride 105 Carbon Dioxide 23 Anion Gap 7 L BUN 42 H Creatinine 1.6 H Creat Clearance w eGFR 42.58 Random Glucose 132 H Uric Acid Calcium 8.3 L Magnesium Total Bilirubin 0.5 AST 15 ALT 7 L Alkaline Phosphatase 81 D B-Natriuretic Peptide Total Protein 5.9 L Albumin 2.8 L Triglycerides Cholesterol Total LDL Cholesterol HDL Cholesterol TSH Fluid Source Fluid WBC Fluid RBC Fluid Neutrophils Fluid Other Cells Pleural Diff Comment Synovial Crystals 12/06/18 12/07/18 12/07/18 06:00 07:00 07:00 WBC 8.4 RBC 4.75 Hgb 11.2 L Hct 36.1 MCV 75.9 L MCH 23.6 L MCHC 31.1 L RDW 13.1 Plt Count 336 MPV 10.6 Absolute Neuts (auto) 6.1 Neutrophils % 72.5 Neutrophils % (Manual) Band Neutrophils % Lymphocytes % 17.3 Lymphocytes % (Manual) Monocytes % 6.3 Monocytes % (Manual) Eosinophils % 3.4 Basophils % 0.5 D Platelet Estimate Anisocytosis Target Cells Tear Drop Cells PT with INR INR Sodium 141 138 Potassium 4.7 4.5 Chloride 108 H 110 H Carbon Dioxide 24 23 Anion Gap 9 5 L BUN 39 H 34 H Creatinine 1.5 H 1.3 Creat Clearance w eGFR 45.87 54.11 Random Glucose 93 111 H Uric Acid Calcium 8.6 8.7 Magnesium 2.0 2.0 Total Bilirubin 0.5 0.4 AST 14 L 15 ALT 5 L 4 L Alkaline Phosphatase 77 79 B-Natriuretic Peptide Total Protein 5.9 L 6.0 L Albumin 2.8 L 3.0 L Triglycerides Cholesterol Total LDL Cholesterol HDL Cholesterol TSH Fluid Source Fluid WBC Fluid RBC Fluid Neutrophils Fluid Other Cells Pleural Diff Comment Synovial Crystals HOSPITAL COURSE: Date of Admission:12/03/18 Date of Discharge: 12/08/18 73 year-old male with a PMH significant for HTN, and systolic heart failure. Admitted for acute gout of right knee. Right knee swelling with leukocytosis s/p aspiration 12/03/18 Gout flare --presented to his orthopedist with right knee swelling and pain x 4 days, no hx of gout but uric acid 7.9; synovial fluid 55K WBCs, + crystals --treated with colchine acute dosing with improvement; started prednisone --on admission serum WBC 16.8k trended to WNL, culture negative as of date of discharge; was treated empirically with Ancef, discharged on no antibiotics Severe systolic heart failure --12/04 Echo: mild concentric LVH, EF 30-35%, systolic function severely reduced, severe global hypokinesis; RV normal; LAE; mild MR; mild TR; mild AI --continued home regimen of Lasix q2d, spironolactone, Imdur, Entresto --seen and evaluated by cardiology Elevated Creatinine, resolved --Cr 2.1 on admission, trended to 1.3 Hypertension --BP stable --continued carvedilol Minutes to complete discharge: 35 Discharge Summary Reason For Visit: PYOGENIC ARTHRITIS OF RIGHT KNEE JOINT Current Active Problems Septic arthritis of knee, right (Acute) Condition: Improved - Instructions Diet, Activity, Other Instructions: A prescription has been sent to your pharmacy for a Medrol Dose Michael. Take this medication as directed and be sure to finish all the medication. Referrals: Cheo Diallo [Non Staff, Medical] - Disposition: HOME - Home Medications Comprehensive Discharge Medication List: Ambulatory Orders Amlodipine Besylate [Norvasc -] 2.5 mg PO DAILY 12/03/18 Aspirin [Aspirin EC] 81 mg PO DAILY 12/03/18 Carvedilol 25 mg PO BID 12/03/18 Furosemide 40 mg PO Q2D 12/03/18 Isosorbide Mononitrate [Isosorbide Mononitrate ER] 30 mg PO DAILY 12/03/18 Sacubitril/Valsartan [Entresto 24 mg-26 mg Tablet] 1 each PO DAILY 12/03/18 Spironolact/Hydrochlorothiazid [Spironolactone-Hctz 25-25 Tab] 1 each PO AM This patient is new to me today: No Emergency Visit: Yes ED Registration Date: 12/03/18 Care time: The patient presented to the Emergency Department on the above date and was hospitalized for further evaluation of their emergent condition. Critical Care patient: No - Discharge Referral Referred to [facility] No
[2018-12-09] MEDS ORDERED: ENOXAPARIN NA (PORCINE) 40 MG/0.4 ML DISP.SYRIN SQ SCH (10:00)
== END 2018-12-08 12:00 | disposition home or self-care (01) | DRG 554 ==
LOC: FER 17:21 → FM/S 21:52
PROVIDERS: ADMIT Internal Medicine; ATTEND Nurse Practitioner Acute Care
DX: M10.9 Gout, unspecified (principal); I50.22 Chronic systolic (congestive) heart failure; I42.8 Other cardiomyopathies; I11.0 Hypertensive heart disease with heart failure; M25.461 Effusion, right knee
CPT/HCPCS: 36415; 80048; 80053; 80061; 83735; 83880; 84443; 84550; 85025; 85610; 87070; 87075; 87205; 89060; 93005; 93306-TC; 97116-GP; 97162-GP; 99282-25; J0131